=== PATIENT | male | born 1970 | race Caucasian/White ===

== ENCOUNTER 2017-03-10 14:24 | Inpatient (IN) | payer OTHER ==
[2017-03-10 16:01] LABS: ADD MAN DIFF? NO
[2017-03-10 16:03] LABS: BASOPHILS % 0.4 % (0.0-2.0); EOSINOPHILS # 0.1 10^3/ul (0.0-0.5); EOSINOPHILS % 0.9 % (0.0-7.0); HEMATOCRIT 39.2 % (42.0-52.0); HEMOGLOBIN 13.2 g/dl (14.0-18.0); LYMPHOCYTES # 1.1 10^3/ul (0.8-2.9); LYMPHOCYTES % 11.4 % (15.0-51.0); MEAN CORPUSCULAR HGB CONC 33.7 g/dl (32.0-37.0); MEAN CORPUSCULAR VOLUME 89.1 fl (82.0-101.0); MEAN PLATELET VOLUME 10.6 fl (7.4-10.4); MONOCYTE # 0.5 10^3/ul (0.3-0.9); MONOCYTES % 5.7 % (0.0-11.0); NEUTROPHIL # 7.5 10^3/ul (1.6-7.5); NEUTROPHILS % 81.4 % (39.0-77.0); PLATELET COUNT 273 10^3/UL (140-415); RED CELL DISTRIBUTION WIDTH 13.7 % (11.5-14.5)
[2017-03-10 16:03] LABS: WHITE BLOOD COUNT 9.2 10^3/ul (4.8-10.8)
[2017-03-10 16:22] LABS: ALANINE AMINOTRANSFERASE 30 IU/L (13-69); ALBUMIN 4.6 g/dl (3.3-4.9); ALBUMIN/GLOBULIN RATIO 1.24; ALKALINE PHOSPHATASE 92 IU/L (42-121); ANION GAP 16 (8-16); ASPARTATE AMINO TRANSFERASE 39 IU/L (15-46); BILIRUBIN,INDIRECT 0.1 mg/dl (0-1.1); BILIRUBIN,TOTAL 0.1 mg/dl (0.2-1.3); CARBON DIOXIDE 28 mmol/L (21-31); CHLORIDE 101 mmol/L (97-110); GLUCOSE 101 mg/dl (70-220); TOTAL PROTEIN 8.3 g/dl (6.1-8.1)
[2017-03-10 16:29] LABS: BLOOD UREA NITROGEN 19 mg/dl (7-20); CALCIUM 9.4 mg/dl (8.4-10.2); CREATININE 0.98 mg/dl (0.61-1.24); POTASSIUM 4.3 mmol/L (3.5-5.1); SODIUM 141 mmol/L (135-144)
[2017-03-10 16:49] LABS: PARTIAL THROMBOPLASTIN TIME 28.4 Sec (25.0-35.0)
[2017-03-10 16:53] LABS: PROTIME 12.2 Sec (11.9-14.9)
[2017-03-10] MEDS ORDERED: THROMBIN 5000 UNIT VIAL (17:03)
[2017-03-10] MEDS ORDERED: HEPARIN 1000 UNITS/ML 10 ML INJ (17:04)
[2017-03-10] MEDS: THROMBIN 5000 UNIT VIAL TOP (17:26)
[2017-03-10] MEDS: GELATIN SIZE 100 SPONGE TOP (17:26)
[2017-03-10] MEDS ORDERED: GELATIN SIZE 100 SPONGE (17:42)
[2017-03-10] MEDS ORDERED: MIDAZOLAM 1 MG/ML 2 ML INJ (18:18)
[2017-03-10] MEDS: CEFAZOLIN 1 GM/50 ML (PMX) 50 ML IVPB (18:20)
[2017-03-10] MEDS ORDERED: PHENYLephrine (100 MCG/ML) 5ML SYG (18:21)
[2017-03-10] MEDS ORDERED: morphine 10 MG INJ (19:19)
[2017-03-10] MEDS: HEMOSTATIC MATRIX SYG ZFS (19:32)
[2017-03-10] MEDS ORDERED: HYDROCODONE/APAP (5/325) TAB PO (20:00)
[2017-03-10] MEDS: DOCUSATE SODIUM 100 MG CAP PO (20:00)
[2017-03-10] MEDS ORDERED: NALOXONE (0.4 MG/ML) INJ IV (20:00)
[2017-03-10] MEDS ORDERED: NACL 0.9% 3 ML SYG IV (20:00)
[2017-03-10] MEDS ORDERED: LIDOCAINE 2% (SDV) 5 ML INJ (21:21)
[2017-03-10] MEDS ORDERED: PROPOFOL 20 ML (21:21)
[2017-03-10] MEDS ORDERED: NEOSTIGMINE 3 MG/3 ML SYRINGE (21:21)
[2017-03-10] MEDS ORDERED: ROCURONIUM 50 MG INJ (21:21)
[2017-03-10] MEDS ORDERED: GLYCOPYRROLATE 0.4 MG INJ (21:21)
[2017-03-10] MEDS ORDERED: ONDANSETRON 4 MG INJ ×2 (21:21→21:33)
[2017-03-10] MEDS ORDERED: HYDROmorphONE (0.2 MG/ML) 10ML SYG IV ×2 (21:27→22:00)
[2017-03-10] MEDS ORDERED: FENTAnyl 50 MCG/ML VIAL (21:32)
[2017-03-10] MEDS ORDERED: MEPERIDINE 25 MG INJ (21:49)
[2017-03-10] MEDS: MEPERIDINE 25 MG INJ IV (21:53)
[2017-03-10] MEDS: FENTAnyl 50 MCG/ML VIAL IV (21:53)
[2017-03-10] MEDS: HYDROmorphONE (0.2 MG/ML) 10ML SYG IV (21:54)
[2017-03-10] MEDS: DIPHENHYDRAMINE 50 MG INJ IV (21:57)
[2017-03-10] MEDS: ONDANSETRON 4 MG INJ IV (21:57)
[2017-03-10] MEDS ORDERED: METOCLOPRAMIDE 10 MG INJ IV (22:00)
[2017-03-10] MEDS: HYDROmorphONE 0.2 MG/ML PCA IV (22:07)
[2017-03-11] MEDS: SOD CHLORIDE 0.9% 1,000 ML IV ×2 (01:30→14:52)
[2017-03-11] MEDS: CEFAZOLIN 1 GM/50 ML (PMX) 50 ML IVPB ×3 (02:42→11:59)
[2017-03-11] MEDS: DOCUSATE SODIUM 100 MG CAP PO ×4 (05:13→21:01)
[2017-03-11 08:29] LABS: HEMATOCRIT 33.2 % (42.0-52.0); HEMOGLOBIN 11.1 g/dl (14.0-18.0)
[2017-03-11 08:55] LABS: ANION GAP 13 (8-16); BLOOD UREA NITROGEN 14 mg/dl (7-20); CALCIUM 8.8 mg/dl (8.4-10.2); CARBON DIOXIDE 32 mmol/L (21-31); CHLORIDE 98 mmol/L (97-110); CREATININE 1.07 mg/dl (0.61-1.24); GLUCOSE 101 mg/dl (70-220); POTASSIUM 4.1 mmol/L (3.5-5.1); SODIUM 139 mmol/L (135-144)
[2017-03-11] MEDS: HYDROmorphONE 0.2 MG/ML PCA IV ×2 (11:51→21:01)
[2017-03-12] MEDS: SOD CHLORIDE 0.9% 1,000 ML IV ×2 (03:40→17:00)
[2017-03-12] MEDS: HYDROmorphONE 0.2 MG/ML PCA IV ×2 (04:01→11:00)
[2017-03-12] MEDS: DOCUSATE SODIUM 100 MG CAP PO ×2 (08:42→21:03)
[2017-03-12 09:29] LABS: ADD MAN DIFF? NO
[2017-03-12 09:41] LABS: BASOPHILS % 0.2 % (0.0-2.0); EOSINOPHILS # 0.2 10^3/ul (0.0-0.5); EOSINOPHILS % 2.4 % (0.0-7.0); HEMATOCRIT 34.8 % (42.0-52.0); HEMOGLOBIN 11.3 g/dl (14.0-18.0); LYMPHOCYTES % 20.9 % (15.0-51.0); MEAN CORPUSCULAR HEMOGLOBIN 29.7 pg (29.0-33.0); MEAN CORPUSCULAR HGB CONC 32.5 g/dl (32.0-37.0); MEAN CORPUSCULAR VOLUME 91.3 fl (82.0-101.0); MEAN PLATELET VOLUME 10.7 fl (7.4-10.4); MONOCYTE # 1.1 10^3/ul (0.3-0.9); MONOCYTES % 11.2 % (0.0-11.0); NEUTROPHIL # 6.1 10^3/ul (1.6-7.5); NEUTROPHILS % 65.1 % (39.0-77.0); PLATELET COUNT 211 10^3/UL (140-415); RED BLOOD COUNT 3.81 10^6/ul (4.70-6.10); RED CELL DISTRIBUTION WIDTH 13.4 % (11.5-14.5)
[2017-03-12 09:41] LABS: WHITE BLOOD COUNT 9.4 10^3/ul (4.8-10.8)
[2017-03-12 11:26] LABS: ANION GAP 15 (8-16); BLOOD UREA NITROGEN 12 mg/dl (7-20); CALCIUM 8.7 mg/dl (8.4-10.2); CARBON DIOXIDE 30 mmol/L (21-31); CHLORIDE 95 mmol/L (97-110); GLUCOSE 97 mg/dl (70-220); POTASSIUM 3.7 mmol/L (3.5-5.1); SODIUM 136 mmol/L (135-144)
[2017-03-12] MEDS: HYDROmorphONE 2 MG TAB PO ×2 (21:04→23:44)
[2017-03-13] MEDS: HYDROmorphONE 2 MG TAB PO ×7 (03:42→23:17)
[2017-03-13] MEDS: SOD CHLORIDE 0.9% 1,000 ML IV ×2 (06:20→19:40)
[2017-03-13] MEDS: DOCUSATE SODIUM 100 MG CAP PO ×2 (09:14→20:45)
[2017-03-14] MEDS: DOCUSATE SODIUM 100 MG CAP PO ×2 (08:35→20:53)
[2017-03-14] MEDS: SOD CHLORIDE 0.9% 1,000 ML IV ×2 (08:35→20:57)
[2017-03-14] MEDS: HYDROmorphONE 2 MG TAB PO ×4 (08:40→20:54)
[2017-03-14] MEDS: ACETAMINOPHEN 325 MG TAB PO (17:50)
[2017-03-14] MEDS: HYDROCODONE/APAP (5/325) TAB PO (23:46)
[2017-03-15] MEDS: HYDROmorphONE 2 MG TAB PO ×5 (02:08→22:30)
[2017-03-15] MEDS: SOD CHLORIDE 0.9% 1,000 ML IV (03:50)
[2017-03-15 08:13] LABS: ADD MAN DIFF? NO
[2017-03-15 08:31] LABS: BASOPHILS % 0.4 % (0.0-2.0); EOSINOPHILS # 0.2 10^3/ul (0.0-0.5); EOSINOPHILS % 4.7 % (0.0-7.0); HEMATOCRIT 31.5 % (42.0-52.0); HEMOGLOBIN 10.5 g/dl (14.0-18.0); LYMPHOCYTES # 1.7 10^3/ul (0.8-2.9); LYMPHOCYTES % 33.2 % (15.0-51.0); MEAN CORPUSCULAR HEMOGLOBIN 29.7 pg (29.0-33.0); MEAN CORPUSCULAR HGB CONC 33.3 g/dl (32.0-37.0); MEAN CORPUSCULAR VOLUME 89.2 fl (82.0-101.0); MEAN PLATELET VOLUME 10.6 fl (7.4-10.4); MONOCYTE # 0.6 10^3/ul (0.3-0.9); MONOCYTES % 11.5 % (0.0-11.0); NEUTROPHIL # 2.6 10^3/ul (1.6-7.5); PLATELET COUNT 253 10^3/UL (140-415); RED BLOOD COUNT 3.53 10^6/ul (4.70-6.10); RED CELL DISTRIBUTION WIDTH 12.9 % (11.5-14.5)
[2017-03-15 08:31] LABS: WHITE BLOOD COUNT 5.2 10^3/ul (4.8-10.8)
[2017-03-15 08:44] LABS: ANION GAP 14 (8-16); BLOOD UREA NITROGEN 16 mg/dl (7-20); CALCIUM 9.1 mg/dl (8.4-10.2); CARBON DIOXIDE 27 mmol/L (21-31); CHLORIDE 103 mmol/L (97-110); GLUCOSE 100 mg/dl (70-220); POTASSIUM 3.8 mmol/L (3.5-5.1); SODIUM 140 mmol/L (135-144)
[2017-03-15] MEDS: DOCUSATE SODIUM 100 MG CAP PO ×2 (08:45→22:22)
[2017-03-15] MEDS: LORATADINE 10 MG TAB PO (11:24)
[2017-03-15] MEDS: HYDROCODONE/APAP (5/325) TAB PO (11:25)
[2017-03-16] MEDS: HYDROmorphONE 2 MG TAB PO ×4 (06:50→22:55)
[2017-03-16] MEDS: DOCUSATE SODIUM 100 MG CAP PO ×2 (09:44→22:55)
[2017-03-17] MEDS: HYDROmorphONE 2 MG TAB PO ×6 (02:00→22:05)
[2017-03-17] MEDS: DOCUSATE SODIUM 100 MG CAP PO ×2 (08:07→22:04)
[2017-03-18] MEDS: HYDROmorphONE 2 MG TAB PO ×5 (01:33→21:24)
[2017-03-18] MEDS: DOCUSATE SODIUM 100 MG CAP PO ×2 (11:09→21:14)
[2017-03-19] MEDS: HYDROmorphONE 2 MG TAB PO ×5 (01:07→20:50)
[2017-03-19] MEDS: DOCUSATE SODIUM 100 MG CAP PO ×2 (09:13→20:50)
[2017-03-19 11:58] LABS: ADD MAN DIFF? NO
[2017-03-19 12:15] LABS: BASOPHILS % 0.5 % (0.0-2.0); EOSINOPHILS # 0.1 10^3/ul (0.0-0.5); EOSINOPHILS % 1.7 % (0.0-7.0); HEMATOCRIT 36.2 % (42.0-52.0); HEMOGLOBIN 11.9 g/dl (14.0-18.0); LYMPHOCYTES # 2.4 10^3/ul (0.8-2.9); MEAN CORPUSCULAR HEMOGLOBIN 29.5 pg (29.0-33.0); MEAN CORPUSCULAR HGB CONC 32.9 g/dl (32.0-37.0); MEAN CORPUSCULAR VOLUME 89.8 fl (82.0-101.0); MEAN PLATELET VOLUME 10.4 fl (7.4-10.4); MONOCYTE # 0.5 10^3/ul (0.3-0.9); MONOCYTES % 6.7 % (0.0-11.0); NEUTROPHIL # 4.9 10^3/ul (1.6-7.5); NEUTROPHILS % 60.9 % (39.0-77.0); PLATELET COUNT 448 10^3/UL (140-415); RED BLOOD COUNT 4.03 10^6/ul (4.70-6.10)
[2017-03-19 12:32] LABS: ANION GAP 19 (8-16); BLOOD UREA NITROGEN 18 mg/dl (7-20); CALCIUM 9.8 mg/dl (8.4-10.2); CARBON DIOXIDE 31 mmol/L (21-31); CHLORIDE 98 mmol/L (97-110); CREATININE 1.14 mg/dl (0.61-1.24); GLUCOSE 101 mg/dl (70-220); POTASSIUM 4.1 mmol/L (3.5-5.1); SODIUM 144 mmol/L (135-144)
[2017-03-20] MEDS: HYDROmorphONE 2 MG TAB PO ×4 (00:07→14:54)
[2017-03-20] MEDS: DOCUSATE SODIUM 100 MG CAP PO (08:54)
[2017-03-20] MEDS: CEPHALEXIN 250 MG CAP PO (14:54)
[2017-03-21] MEDS ORDERED: PANTOPRAZOLE 40 MG INJ IV (06:00)
== END 2017-03-20 16:10 | disposition home health service (06) | DRG 460 ==
LOC: REC 14:24 → MS2 03-17 18:10 → TEL 22:48
PROC: 0SG00A0 Fusion of Lumbar Vertebral Joint with Interbody Fusion Device, Anterior Approach, Anterior Column, Open Approach (ICD-10-PCS; principal; 2017-03-10 17:00)
PROC: 0SG30A0 Fusion of Lumbosacral Joint with Interbody Fusion Device, Anterior Approach, Anterior Column, Open Approach (ICD-10-PCS; 2017-03-10 17:00)
PROC: 0SP00AZ Removal of Interbody Fusion Device from Lumbar Vertebral Joint, Open Approach (ICD-10-PCS; 2017-03-10 17:00)
PROC: 0SP30AZ Removal of Interbody Fusion Device from Lumbosacral Joint, Open Approach (ICD-10-PCS; 2017-03-10 17:00)
DX: T84.028A Dislocation of other internal joint prosthesis, initial encounter (principal); I10 Essential (primary) hypertension; M54.17 Radiculopathy, lumbosacral region; M54.5 Low back pain; Y83.8 Other surgical procedures as the cause of abnormal reaction of the patient, or of later complication, without mention of misadventure at the time of the procedure
CPT/HCPCS: 71010; 72114; 72131; 80048; 80053; 85014; 85018; 85025; 85610; 85730; 86850; 86900; 86901; 86920; 87086; 88304; 93005; 97110; 97116; 97162; 97530